=== PATIENT | male | born 1980 | race Hispanic/Latino ===

== ENCOUNTER 2017-08-23 16:37 | Emergency (ER) | payer MEDICAID ==
[2017-08-23 16:54] VITALS: BP 132/76; PULSE 81; TEMP 98.7; O2SAT 96
[2017-08-23 17:03] VITALS: BMI 37.5
[2017-08-23 17:07] VITALS: RESP 20
--- NOTE | 2017-08-23 17:41 | C.PDOC ---
History Of Present Illness 37 year old male presents to the ED requesting heroin detox. Patient admits to snorting heroin daily, and states his last use was 6 hours prior to arrival. Patient is complaining of a tingling sensation to his bilateral legs. Otherwise , he denies fever, chills, recent trauma/injury, or suicidal/homicidal ideation. Time Seen by Provider: 08/23/17 16:56 Chief Complaint (Nursing): Substance Abuse History Per: Patient History/Exam Limitations: no limitations Onset/Duration Of Symptoms: Hrs (6) Current Symptoms Are (Timing): Still Present Suicide/Self Injury Attempted (Context): None Modifying Factor(s): Narcotics (heroin ) Associated Symptoms: denies: Suicidal Thoughts, Suicidal Plan Involuntary Hold By: None Recent travel outside of the [place]: No Additional History Per: Patient Past Medical History Reviewed: Historical Data, Nursing Documentation, Vital Signs Vital Signs: Last Vital Signs Temp 98.7 F 08/23/17 17:03 Pulse 81 08/23/17 17:03 Resp 20 08/23/17 17:03 BP 132/76 08/23/17 17:03 Pulse Ox 96 08/23/17 17:41 - Medical History PMH: No Chronic Diseases Surgical History: Cholecystectomy Family History: States: Unknown Family Hx - Social History Hx Alcohol Use: No Hx Substance Use: Yes (heroin) Review Of Systems Constitutional: Negative for: Fever, Chills Neurological: Positive for: Other (tingling sensation to bilateral lower extremities ) Psych: Positive for: Other (heroin detox ). Negative for: Suicidal ideation Physical Exam - Physical Exam Appears: Non-toxic, No Acute Distress Skin: Normal Color, Warm, Dry Head: Atraumatic, Normacephalic Eye(s): bilateral: Normal Inspection Oral Mucosa: Moist Neck: Supple Chest: Symmetrical, No Deformity, No Tenderness Cardiovascular: Rhythm Regular Respiratory: Normal Breath Sounds, No Rales, No Rhonchi, No Wheezing Extremity: Normal ROM, No Tenderness, Capillary Refill (less than 2 seconds ), No Swelling Neurological/Psych: Oriented x3, Normal Speech, Normal Cognition ED Course And Treatment O2 Sat by Pulse Oximetry: 96 (on RA) Pulse Ox Interpretation: Normal Progress Note: Motrin PO given. Case discussed with broom worker, who states there are no male detox beds available at this time. Patient is informed of this and is provided with detox number for further inquiry. Disposition Counseled Patient/Family Regarding: Diagnosis, Need For Followup, Rx Given - Disposition Referrals: at [facility] [Outside] Disposition: HOME/ ROUTINE Disposition Time: 17:40 Condition: STABLE Additional Instructions: CALL CRISIS FOR PRESCREENING AT [phone] RETURN TO ER IF SYMPTOMS WORSEN Prescriptions: Ibuprofen [Motrin Tab] 600 mg PO Q6 PRN #30 tab PRN Reason: fever/pain Instructions: Drug Abuse and Drug Addiction (DC) Forms: [employer] (Bahraini) Print Language: OCCITAN - Clinical Impression Clinical Impression: Heroin dependence - Scribe Statement The provider has reviewed the documentation as recorded by the Scribe (Gina Nichols) Provider Attestation: All medical record entries made by the Scribe were at my direction and personally dictated by me. I have reviewed the chart and agree that the record accurately reflects my personal performance of the history, physical exam, medical decision making, and the department course for this patient. I have also personally directed, reviewed, and agree with the discharge instructions and disposition.
== END 2017-08-23 17:58 | disposition home or self-care (01) ==
LOC: C.ER 16:37
DX: F11.20 Opioid dependence, uncomplicated (principal); M79.605 Pain in left leg; M79.604 Pain in right leg